=== PATIENT | female | born 1985 | race Caucasian/White ===

== ENCOUNTER 2021-03-07 11:21 | Emergency (ER) | payer MEDICAID ==
[~2021-03-07] VITALS: Ht 157.5 cm; Wt 97.1 kg
[2021-03-07] MEDS ORDERED: EFFEXOR XR150 MG (11:50)
[2021-03-07] MEDS ORDERED: REMERON15 M2 (11:50)
[2021-03-07] MEDS ORDERED: PROAIR HFA8.5 GM INH (12:09)
[2021-03-07] MEDS ORDERED: PREDNISONE 20 M20 M1 PO (12:09)
[2021-03-07] MEDS ORDERED: NEXIUM40 MG PO (12:09)
[2021-03-07] MEDS ORDERED: TESSALON PERLE100 M1 PO (12:09)
[2021-03-07] MEDS ORDERED: ZOFRAN ODT4 MG PO (12:09)
[2021-03-07 13:17] VITALS: BP 109/71
== END 2021-03-07 13:19 | disposition home or self-care (01) ==
LOC: M.ERS 11:21
DX: K29.70 Gastritis, unspecified, without bleeding (principal); Z20.822 Contact with and (suspected) exposure to COVID-19; R05.9 Cough, unspecified; R51.9 Headache, unspecified; J06.9 Acute upper respiratory infection, unspecified; K22.6 Gastro-esophageal laceration-hemorrhage syndrome; Z79.899 Other long term (current) drug therapy; Z88.2 Allergy status to sulfonamides; Z91.048 Other nonmedicinal substance allergy status